=== PATIENT | female | born 1980 | race African-American/Black ===

== ENCOUNTER 2017-10-05 09:11 | Emergency (ER) | payer BC ==
[2017-10-05] MEDS: Take Home: Acetaminophen/HYDROcodone 325-10 MG, 5 Tab Pack PO ONE (09:59)
[2017-10-05] MEDS: predniSONE 20 MG Tab PO ONE (09:59)
[2017-10-05] MEDS: Take Home: Cyclobenzaprine 10 MG Tab, 4 Tab Pack PO ONE (09:59)
--- NOTE | 2017-10-05 13:01 | EDM.PDOC ---
ED HPI GENERAL MEDICAL PROBLEM - General Chief Complaint: Back Pain or Injury Stated Complaint: BACK PAIN Time Seen by Provider: 10/05/17 09:11 Source of Information: Reports: Patient History Limitations: Reports: No Limitations - History of Present Illness INITIAL COMMENTS - FREE TEXT/NARRATIVE: Pt. presents to ER with complaints of low back pain and paresthesia in the back of her R thigh. Pt. states that she was lifting a heavy television set and twisted at the waist, injuring her back. She states that after she laid flat on her back, she began experiencing the paresthesia. She denies any saddle anesthesia. No incontinence. Denies any injury other than what was isolated to her back. Lower Back Pain Score (Numeric/FACES): 9 - Related Data Allergies Allergy/AdvReac Type Severity Reaction Status Date / Time loratadine Allergy Swelling Verified 08/26/15 16:20 Penicillins Allergy Swelling Verified 08/26/15 16:20 Home Meds: Home Meds . [No Known Home Meds] 08/26/15 [History] Past Medical History - Past Health History Medical/Surgical History: Denies Medical/Surgical History - Past Surgical History Female Surgical History: Reports: Section Social & Family History - Tobacco Use Smoking Status *Q: Never Smoker - Alcohol Use Days Per Week of Alcohol Use: 3 Number of Drinks Per Day: 2 Total Drinks Per Week: 6 - Recreational Drug Use Recreational Drug Use: No ED ROS GENERAL - Review of Systems Review Of Systems: See Below Constitutional: Reports: No Symptoms HEENT: Reports: No Symptoms Respiratory: Reports: No Symptoms Cardiovascular: Reports: No Symptoms Endocrine: Reports: No Symptoms GI/Abdominal: Reports: No Symptoms : Reports: No Symptoms Musculoskeletal: Reports: Back Pain Skin: Reports: No Symptoms Neurological: Reports: No Symptoms, Paresthesia, Other (posterior R thigh) Psychiatric: Reports: No Symptoms Hematologic/Lymphatic: Reports: No Symptoms Immunologic: Reports: No Symptoms ED EXAM, GENERAL - Physical Exam Exam: See Below Exam Limited By: No Limitations General Appearance: Alert, WD/WN, No Apparent Distress Ears: Normal External Exam, Normal Canal, Hearing Grossly Normal, Normal TMs Ear Exam: Bilateral Ear: Auricle Normal, Canal Normal, TM normal Nose: Normal Inspection, Normal Mucosa, No Blood Respiratory/Chest: No Respiratory Distress, Lungs Clear, Normal Breath Sounds, No Accessory Muscle Use, Chest Non-Tender Cardiovascular: Normal Peripheral Pulses, Regular Rate, Rhythm, No Edema, No Gallop, No JVD, No Murmur, No Rub Back Exam: Normal Inspection, Decreased Range of Motion, Muscle Spasm, Paraspinal Tenderness, Vertebral Tenderness Extremities: Normal Inspection, Normal Range of Motion, Non-Tender, Normal Capillary Refill, No Pedal Edema Neurological: Alert, Oriented, CN II-XII Intact, Normal Cognition, Normal Gait, Normal Reflexes, No Motor/Sensory Deficits Psychiatric: Normal Affect, Normal Mood Skin Exam: Warm, Dry, Intact, Normal Color, No Rash Course - Vital Signs Last Recorded V/S: Last Vital Signs Temp 36.6 C 10/05/17 09:11 Pulse 61 10/05/17 09:11 Resp 16 10/05/17 09:11 BP 117/76 10/05/17 09:11 Pulse Ox - Orders/Labs/Meds Meds: Medications Discontinued Medications Generic Name Dose Route Start Last Admin Trade Name Shakir PRN Reason Stop Dose Admin Hydrocodone Bitart/Acetaminophen 1 packet 10/05/17 09:43 10/05/17 09:59 Take Home: Acetaminophen/Hydrocodone 325-10mg PO 10/05/17 09:44 1 packet ONETIME ONE Administration Cyclobenzaprine HCl 1 packet 10/05/17 09:44 10/05/17 09:59 Take Home: Cyclobenzaprine 10 Mg, 4 Tab Pack PO 10/05/17 09:45 1 packet ONETIME ONE Administration Prednisone 40 mg 10/05/17 09:44 10/05/17 09:59 Prednisone PO 10/05/17 09:45 40 mg ONETIME ONE Administration Departure - Departure Time of Disposition: 10:10 Disposition: Home, Self-Care 01 Clinical Impression: Low back pain radiating to right lower extremity - Discharge Information Instructions: Back Pain, Adult, [id number], Low Back Strain Rehab-SportsMed Referrals: PCP,None [Primary Care Provider] - Forms: ED Department Discharge Additional Instructions: Cyclobenzaprine 10mg three times daily as needed for muscle spasm Fortescue 10/325mg 1 every 4-6 hours as needed for pain Prednisone 40mg once daily until gone Continue with ibuprofen 800mg every 8 hours as needed for pain Do exercises as described. Follow-up in clinic in 10 days for recheck. You will be contacted regarding physical therapy.
== END 2017-10-05 10:10 | disposition home or self-care (01) ==
LOC: VM.ED 09:11
DX: M54.5 Low back pain (principal); Z88.8 Allergy status to other drugs, medicaments and biological substances; Z88.0 Allergy status to penicillin
CPT/HCPCS: 99283; A9270-GY

== ENCOUNTER 2019-03-15 10:35 | Emergency (ER) | payer SELFPAY ==
--- NOTE | 2019-03-15 11:19 | EDM.PDOC ---
ED HPI GENERAL MEDICAL PROBLEM - General Stated Complaint: SORE THROAT, CHEST CONJESTION Time Seen by Provider: 03/15/19 11:00 Source of Information: Reports: Patient History Limitations: Reports: No Limitations - History of Present Illness INITIAL COMMENTS - FREE TEXT/NARRATIVE: She started getting sick on Friday. Her son was sick on Friday. She has had a productive cough. She has been having difficulty sleeping at night because of the cough. Sore throat but not sharp per se. Some chest discomfort but that is from the coughing. She did try to get into her primary she said today but was unable to. She does have allergies penicillin. I did see that she did have azithromycin in the past and she said that she had good results. I gave her a Z- Chintan as well as a refill. I also gave her Robitussin with codeine. I don't believe a chest x-ray is necessary. I don't believe lab work would be necessary either. She understood. Quality: Reports: Ache Severity: Moderate Improves with: Reports: None Throat Pain Score (Numeric/FACES): 7 Chest Pain Score (Numeric/FACES): 7 - Related Data Allergies Allergy/AdvReac Type Severity Reaction Status Date / Time loratadine Allergy Swelling Verified 03/15/19 12:46 Penicillins Allergy Swelling Verified 03/15/19 12:46 Home Meds: Home Meds Azithromycin 250 mg PO DAILY #6 tablet 03/15/19 [Rx] Codeine/guaiFENesin [guaiFENesin-Codeine Syrup] 5 - 10 ml PO Q6H #30 ml [Rx] Past Medical History - Past Health History Medical/Surgical History: Denies Medical/Surgical History - Past Surgical History Female Surgical History: Reports: Section ED ROS GENERAL - Review of Systems Review Of Systems: ROS reveals no pertinent complaints other than HPI. ED EXAM, GENERAL - Physical Exam Exam: See Below Exam Limited By: No Limitations General Appearance: Alert, Moderate Distress Nose: Normal Inspection, Normal Mucosa Throat/Mouth: Normal Inspection, Normal Lips, Normal Teeth, Normal Gums, Normal Oropharynx Head: Atraumatic, Normocephalic Neck: Normal Inspection, Supple, Non-Tender, Full Range of Motion Respiratory/Chest: No Respiratory Distress, Lungs Clear, Normal Breath Sounds, No Accessory Muscle Use, Chest Non-Tender Cardiovascular: Normal Peripheral Pulses, Regular Rate, Rhythm, No Edema, No Gallop, No JVD, No Murmur, No Rub Psychiatric: Normal Affect Skin Exam: Warm, Dry Lymphatic: No Adenopathy Course - Vital Signs Last Recorded V/S: Last Vital Signs Temp 36.6 C 03/15/19 10:40 Pulse 67 03/15/19 10:40 Resp 16 03/15/19 10:40 BP 123/66 03/15/19 10:40 Pulse Ox 99 03/15/19 10:40 Departure - Departure Time of Disposition: 11:13 Disposition: Home, Self-Care 01 Condition: Good Clinical Impression: Acute bronchitis Qualifiers: Bronchitis organism: unspecified organism Qualified Code(s): J20.9 - Acute bronchitis, unspecified - Discharge Information *PRESCRIPTION DRUG MONITORING PROGRAM REVIEWED*: Not Applicable *COPY OF PRESCRIPTION DRUG MONITORING REPORT IN PATIENT SHAHLA: Not Applicable Prescriptions: Azithromycin 250 mg PO DAILY #6 tablet Codeine/guaiFENesin [guaiFENesin-Codeine Syrup] 5 - 10 ml PO Q6H #30 ml Referrals: Sol Leal PA-C [Primary Care Provider] - Forms: ED Return to Work/School Form Additional Instructions: Refill the z-pack if not quite improved after the 5 days. I don't believe a x- ray would change the treatment.
== END 2019-03-15 11:30 | disposition home or self-care (01) ==
LOC: VM.ED 10:35
DX: J20.9 Acute bronchitis, unspecified (principal); Z88.8 Allergy status to other drugs, medicaments and biological substances; Z88.0 Allergy status to penicillin
CPT/HCPCS: 99283; 99283-GF

== ENCOUNTER 2020-10-22 09:51 | Emergency (ER) | payer OTHER, MEDICAID ==
[2020-10-22] MEDS ORDERED: Albuterol/Ipratropium 3.0-0.5 MG/3 ML Neb Soln NEB ONE (10:20)
[2020-10-22] MEDS ORDERED: Take Home: Doxycycline 100 MG Tab, 4 Tab Pack PO ONE (11:00)
[2020-10-22] MEDS ORDERED: Take Home: predniSONE 20 MG, 2 Tab Pack PO ONE (11:00)
[2020-10-22] MEDS ORDERED: Take Home: Albuterol 18 GM Inhaler, 1 Inhaler Pack INH PRN (11:00)
[2020-10-22] MEDS ORDERED: Sodium Chloride 0.9% 10 ML Syringe FLUSH PRN (11:14)
[2020-10-22] MEDS ORDERED: Dexamethasone 4 MG/ML SDV IVPUSH SCH (11:15)
[2020-10-22] MEDS ORDERED: Famotidine 20 MG/2 ML SDV IVPUSH PRN (11:17)
[2020-10-22] MEDS ORDERED: diphenhydrAMINE 50 MG/ML SDV IVPUSH PRN (11:17)
[2020-10-22] MEDS ORDERED: methylPREDNISolone Sodium Succinate 125 MG/2 ML SDV IVPUSH PRN (11:17)
[2020-10-22] MEDS ORDERED: EPINEPHrine 1 MG/ML SDV IM PRN (11:17)
--- NOTE | 2020-10-22 11:21 | CR ---
[id number] RAD/RAD Chest PA And Lateral EXAM: FRONTAL AND LATERAL CHEST INDICATION: HX OF BRONCHITIS COMPARISON: August 26, 2015. DISCUSSION: Evaluation mildly limited by low lung volumes. Mild to moderate bibasilar infiltrates, right greater than left. The heart is at upper limits of normal for size. No effusions. IMPRESSION: 1. Mild to moderate bibasilar infiltrates. Gavin Mojica MD 10/22/20 1120 Thank you for allowing us to participate in the care of your patient.
[2020-10-22] MEDS ORDERED: Sodium Chloride 0.9% 10 ML Syringe FLUSH SCH (11:30)
[2020-10-22 12:27] LABS: PTT,PARTIAL THROMBOPLSTIN TIME 31.9 SEC (25.6-32.8)
[2020-10-22 12:44] LABS: CHLORIDE,CL 100 mmol/L (98-107); SODIUM,NA 136 mmol/L (136-145)
[2020-10-22 12:45] LABS: ANION GAP 13.5 mmol/L (5-15)
--- NOTE | 2020-10-22 12:50 | EDM.PDOC ---
ED HPI GENERAL MEDICAL PROBLEM - General Chief Complaint: Respiratory Problem Stated Complaint: SOB,COUGHING Time Seen by Provider: 10/22/20 10:00 Source of Information: Reports: Patient History Limitations: Reports: No Limitations - History of Present Illness INITIAL COMMENTS - FREE TEXT/NARRATIVE: Pt. presents to ER with complaints of cough, chest congestion, respirophasic ch est pain and shortness of breath. Pt. denies any fever or chills. No nausea, vomiting, or diarrhea. Pt. states that she often has problems with bronchitis, particularly in the spring since moving to [place]. She has been seen in this facility in the past for bronchitis/reactive airway in the past. Pt. is a non-smoker and has never smoked. Pt. states that the symptoms started on Friday, and she states that she is feeling a bit better today than she did earlier in the week. She is concerned that she hasn't improved more, however. Pt. denies any exposure to patients positive for coronavirus. Pt. denies any jaw, arm, neck or back pain. Denies any formal diagnosis of asthma. No history of CAD, hypertension. Denies any peripheral edema. No history of dyslipidemia. She denies any hemoptysis. No calf pain or extremity pallor/duskiness. Onset: Today Onset Date: 10/22/20 Location: Reports: Chest, Generalized Improves with: Reports: Rest Worsens with: Reports: Breathing Thoracic Pain Score (Numeric/FACES): 8 - Related Data Allergies Allergy/AdvReac Type Severity Reaction Status Date / Time loratadine Allergy Swelling Verified 10/22/20 10:23 Penicillins Allergy Swelling Verified 10/22/20 10:23 Home Meds: Home Meds . [No Known Home Meds] 10/22/20 [History] Past Medical History - Past Health History Medical/Surgical History: Denies Medical/Surgical History - Infectious Disease History Infectious Disease History: Reports: Novel Coronavirus - Past Surgical History Female Surgical History: Reports: Section Social & Family History - Tobacco Use Tobacco Use Status *Q: Never Tobacco User ED ROS GENERAL - Review of Systems Review Of Systems: See Below Constitutional: Reports: No Symptoms HEENT: Reports: No Symptoms Respiratory: Reports: Shortness of Breath, Wheezing, Cough Cardiovascular: Reports: Chest Pain Endocrine: Reports: No Symptoms GI/Abdominal: Reports: No Symptoms : Reports: No Symptoms Musculoskeletal: Reports: No Symptoms Skin: Reports: No Symptoms Neurological: Reports: No Symptoms Psychiatric: Reports: No Symptoms Hematologic/Lymphatic: Reports: No Symptoms Immunologic: Reports: No Symptoms ED EXAM, GENERAL - Physical Exam Exam: See Below Exam Limited By: No Limitations General Appearance: Alert, WD/WN, Mild Distress Eye Exam: Bilateral Eye: EOMI, PERRL Head: Atraumatic, Normocephalic Neck: Normal Inspection, Supple, Non-Tender, Full Range of Motion Respiratory/Chest: No Respiratory Distress, No Accessory Muscle Use, Chest Non- Tender, Wheezing Cardiovascular: Normal Peripheral Pulses, Regular Rate, Rhythm, No Edema, No JVD, No Murmur GI/Abdominal: Soft, Non-Tender, No Distention, No Mass (Female) Exam: Deferred Rectal (Female) Exam: Deferred Back Exam: Normal Inspection, Full Range of Motion Extremities: Normal Inspection, Normal Range of Motion, Non-Tender, No Pedal Edema, Normal Capillary Refill Neurological: Alert, Oriented, CN II-XII Intact, Normal Cognition, Normal Reflexes, No Motor/Sensory Deficits Psychiatric: Normal Affect, Normal Mood Skin Exam: Warm, Dry, Intact, Normal Color, No Rash Lymphatic: No Adenopathy #1 Interpretation Rhythm: NSR [place]: Normal P-Wave: Present QRS: Normal ST-T: Normal QT: Normal Course - Vital Signs Last Recorded V/S: Last Vital Signs Temp 36.7 C 10/22/20 13:17 Pulse 81 10/22/20 13:17 Resp 18 10/22/20 13:17 BP 140/89 10/22/20 13:17 Pulse Ox 98 10/22/20 13:17 - Orders/Labs/Meds Orders: Active Orders 24 hr Category Date Time Status EKG Documentation Completion [RC] STAT Care 10/22/20 11:11 Active Nurse Communication: Isolation [RC] ASDIRECTED Care 10/22/20 11:10 Active RT Aerosol Therapy [RC] ASDIRECTED Care 10/22/20 10:20 Active Vital Signs [RC] Q15M Care 10/22/20 11:17 Active CULTURE BLOOD [BC] Stat Lab 10/22/20 11:40 Received CULTURE BLOOD [BC] Stat Lab 10/22/20 11:49 Received PROCALCITONIN [REF] Stat Lab 10/22/20 11:40 Received Albuterol [Take Home: Albuterol 18 GM, 1 INH Pack] Med 10/22/20 11:00 Active 1 packet INH Q4H PRN EPINEPHrine [Adrenalin] Med 10/22/20 11:17 Active 0.3 mg IM ONETIME PRN Famotidine [Pepcid] Med 10/22/20 11:17 Active 20 mg IVPUSH ONETIME PRN Sodium Chloride 0.9% [Saline Flush] Med 10/22/20 11:14 Active 10 ml FLUSH ASDIRECTED PRN Sodium Chloride 0.9% [Saline Flush] Med 10/22/20 11:30 Active 30 ml FLUSH ASDIRECTED dexAMETHasone [Decadron] Med 10/22/20 11:15 Active 6 mg IVPUSH DAILY diphenhydrAMINE [Benadryl] Med 10/22/20 11:17 Active 50 mg IVPUSH ONETIME PRN methylPREDNISolone Sod Succ [Solu-MEDROL] Med 10/22/20 11:17 Active 125 mg IVPUSH ONETIME PRN Blood Culture x2 Reflex Set [OM.PC] Stat Oth 10/22/20 11:27 Ordered Isolation [COMM] Stat Oth 10/22/20 11:10 Ordered Peripheral IV Insertion Adult [OM.PC] Routine Oth 10/22/20 11:14 Ordered Medication Orders Albuterol (Take Home: Albuterol 18 Gm Inhaler, 1 Inhaler Pack) 1 packet INH Q4H PRN PRN Reason: Shortness of Breath Dexamethasone (Dexamethasone 4 Mg/Ml Sdv) 6 mg IVPUSH DAILY EKTA Stop: 10/31/20 08:01 Last Admin: 10/22/20 11:37 Dose: 6 mg Documented by: ROJAS Diphenhydramine HCl (Diphenhydramine 50 Mg/Ml Sdv) 50 mg IVPUSH ONETIME PRN PRN Reason: hypersensitivity reaction Epinephrine HCl (Epinephrine 1 Mg/Ml Sdv) 0.3 mg IM ONETIME PRN PRN Reason: hypersensitivity reaction Famotidine (Famotidine 20 Mg/2 Ml Sdv) 20 mg IVPUSH ONETIME PRN PRN Reason: hypersensitivity reaction Methylprednisolone Sodium Succinate (Methylprednisolone Sodium Succinate 125 Mg/2 Ml Sdv) 125 mg IVPUSH ONETIME PRN PRN Reason: hypersensitivity reaction Sodium Chloride (Sodium Chloride 0.9% 10 Ml Syringe) 10 ml FLUSH ASDIRECTED PRN PRN Reason: Keep Vein Open Sodium Chloride (Sodium Chloride 0.9% 10 Ml Syringe) 30 ml FLUSH ASDIRECTED EKTA Labs: Laboratory Tests 10/22/20 10/22/20 10/22/20 Range/Units 10:19 11:35 11:35 WBC (4.0-10.0) x10^3/uL RBC (4.00-5.50) x10^6/uL Hgb (12.0-16.0) g/dL Hct (33.0-47.0) % MCV (78.0-93.0) fL MCH (26.0-32.0) pg MCHC (32.0-36.0) g/dL RDW Coeff of Charlee (10.0-15.0) % Plt Count (130-400) x10^3/uL Neut % (Auto) (50.0-80.0) % Lymph % (Auto) (25.0-50.0) % [place] % (Auto) (2.0-11.0) % Eos % (Auto) (0.0-4.0) % Baso % (Auto) (0.2-1.2) % PT (9.9-12.5) SEC INR (2.0-3.5) APTT (25.6-32.8) SEC D-Dimer, Quantitative (<=0.58) mg/LFEU Sodium 136 (136-145) mmol/L Potassium 3.5 (3.5-5.1) mmol/L Chloride 100 (98-107) mmol/L Carbon Dioxide 26 (21-32) mmol/L Anion Gap 13.5 (5-15) mmol/L BUN 10 (7-18) mg/dL Creatinine 1.0 (0.55-1.02) mg/dL Est Cr Clr Drug Dosing TNP Estimated GFR (MDRD) > 60 Glucose 99 (70-99) mg/dL Lactic Acid 0.9 (0.4-2.0) mmol/L Calcium 8.6 (8.5-10.1) mg/dL Ferritin (8-252) ng/mL Total Bilirubin 0.3 (0.2-1.0) mg/dL Direct Bilirubin 0.09 (0.00-0.20) mg/dL Indirect Bilirubin 0.21 AST 61 H (15-37) U/L ALT 51 (14-59) U/L Alkaline Phosphatase 88 (46-116) U/L Lactate Dehydrogenase 294 H (81-234) U/L Creatine Kinase 351 H* (26-192) U/L Total Protein 8.1 (6.4-8.2) g/dL Albumin 3.4 (3.4-5.0) g/dL Globulin 4.7 Albumin/Globulin Ratio 0.72 SARS-CoV-2 RNA (JULIETH) Positive H (NEGATIVE) 10/22/20 10/22/20 10/22/20 Range/Units 11:35 11:35 11:35 WBC 2.7 L (4.0-10.0) x10^3/uL RBC 4.33 (4.00-5.50) x10^6/uL Hgb 13.0 (12.0-16.0) g/dL Hct 38.5 (33.0-47.0) % MCV 88.9 (78.0-93.0) fL MCH 30.0 (26.0-32.0) pg MCHC 33.8 (32.0-36.0) g/dL RDW Coeff of Charlee 14.1 (10.0-15.0) % Plt Count 141 (130-400) x10^3/uL Neut % (Auto) 62.0 (50.0-80.0) % Lymph % (Auto) 28.6 (25.0-50.0) % [place] % (Auto) 9.4 (2.0-11.0) % Eos % (Auto) 0.0 (0.0-4.0) % Baso % (Auto) 0.0 L (0.2-1.2) % PT 10.2 (9.9-12.5) SEC INR 0.9 L (2.0-3.5) APTT 31.9 (25.6-32.8) SEC D-Dimer, Quantitative (<=0.58) mg/LFEU Sodium (136-145) mmol/L Potassium (3.5-5.1) mmol/L Chloride (98-107) mmol/L Carbon Dioxide (21-32) mmol/L Anion Gap (5-15) mmol/L BUN (7-18) mg/dL Creatinine (0.55-1.02) mg/dL Est Cr Clr Drug Dosing Estimated GFR (MDRD) Glucose (70-99) mg/dL Lactic Acid (0.4-2.0) mmol/L Calcium (8.5-10.1) mg/dL Ferritin 116 (8-252) ng/mL Total Bilirubin (0.2-1.0) mg/dL Direct Bilirubin (0.00-0.20) mg/dL Indirect Bilirubin AST (15-37) U/L ALT (14-59) U/L Alkaline Phosphatase (46-116) U/L Lactate Dehydrogenase (81-234) U/L Creatine Kinase (26-192) U/L Total Protein (6.4-8.2) g/dL Albumin (3.4-5.0) g/dL Globulin Albumin/Globulin Ratio SARS-CoV-2 RNA (JULIETH) (NEGATIVE) 10/22/20 Range/Units 11:40 WBC (4.0-10.0) x10^3/uL RBC (4.00-5.50) x10^6/uL Hgb (12.0-16.0) g/dL Hct (33.0-47.0) % MCV (78.0-93.0) fL MCH (26.0-32.0) pg MCHC (32.0-36.0) g/dL RDW Coeff of Charlee (10.0-15.0) % Plt Count (130-400) x10^3/uL Neut % (Auto) (50.0-80.0) % Lymph % (Auto) (25.0-50.0) % [place] % (Auto) (2.0-11.0) % Eos % (Auto) (0.0-4.0) % Baso % (Auto) (0.2-1.2) % PT (9.9-12.5) SEC INR (2.0-3.5) APTT (25.6-32.8) SEC D-Dimer, Quantitative 0.76 H (<=0.58) mg/LFEU Sodium (136-145) mmol/L Potassium (3.5-5.1) mmol/L Chloride (98-107) mmol/L Carbon Dioxide (21-32) mmol/L Anion Gap (5-15) mmol/L BUN (7-18) mg/dL Creatinine (0.55-1.02) mg/dL Est Cr Clr Drug Dosing Estimated GFR (MDRD) Glucose (70-99) mg/dL Lactic Acid (0.4-2.0) mmol/L Calcium (8.5-10.1) mg/dL Ferritin (8-252) ng/mL Total Bilirubin (0.2-1.0) mg/dL Direct Bilirubin (0.00-0.20) mg/dL Indirect Bilirubin AST (15-37) U/L ALT (14-59) U/L Alkaline Phosphatase (46-116) U/L Lactate Dehydrogenase (81-234) U/L Creatine Kinase (26-192) U/L Total Protein (6.4-8.2) g/dL Albumin (3.4-5.0) g/dL Globulin Albumin/Globulin Ratio SARS-CoV-2 RNA (JULIETH) (NEGATIVE) Meds: Medications Generic Name Dose Route Start Last Admin Trade Name Freq PRN Reason Stop Dose Admin Albuterol 1 packet 10/22/20 11:00 Take Home: Albuterol 18 Gm Inhaler, 1 Inhaler Pack INH Q4H PRN Shortness of Breath Dexamethasone 6 mg 10/22/20 11:15 10/22/20 11:37 Dexamethasone 4 Mg/Ml Sdv IVPUSH 10/31/20 08:01 6 mg DAILY EKTA Administration Diphenhydramine HCl 50 mg 10/22/20 11:17 Diphenhydramine 50 Mg/Ml Sdv IVPUSH ONETIME PRN hypersensitivity reaction Epinephrine HCl 0.3 mg 10/22/20 11:17 Epinephrine 1 Mg/Ml Sdv IM ONETIME PRN hypersensitivity reaction Famotidine 20 mg 10/22/20 11:17 Famotidine 20 Mg/2 Ml Sdv IVPUSH ONETIME PRN hypersensitivity reaction Methylprednisolone Sodium Succinate 125 mg 10/22/20 11:17 Methylprednisolone Sodium Succinate 125 Mg/2 Ml Sdv IVPUSH ONETIME PRN hypersensitivity reaction Sodium Chloride 10 ml 10/22/20 11:14 Sodium Chloride 0.9% 10 Ml Syringe FLUSH ASDIRECTED PRN Keep Vein Open Sodium Chloride 30 ml 10/22/20 11:30 Sodium Chloride 0.9% 10 Ml Syringe FLUSH ASDIRECTED EKTA Discontinued Medications Generic Name Dose Route Start Last Admin Trade Name Freq PRN Reason Stop Dose Admin Albuterol/Ipratropium 3 ml 10/22/20 10:20 10/22/20 10:27 Albuterol/Ipratropium 3.0-0.5 Mg/3 Ml Neb Soln NEB 10/22/20 10:21 3 ml ONETIME ONE Administration Doxycycline Monohydrate 1 packet 10/22/20 11:00 Take Home: Doxycycline 100 Mg Tab, 4 Tab Pack PO 10/22/20 11:01 ONETIME ONE Bamlanivimab 700 mg/ 310 mls @ 310 mls/hr 10/22/20 11:17 10/22/20 11:38 Etesevimab 1,400 mg/ Sodium IV 10/22/20 12:16 310 mls/hr Chloride ONETIME ONE Administration Iopamidol 100 ml 10/22/20 13:18 10/22/20 14:20 Iopamidol 612 Mg/Ml 100 Ml Bottle IVPUSH 10/22/20 13:19 100 ml ONETIME ONE Administration Prednisone 1 packet 10/22/20 11:00 Take Home: Prednisone 20 Mg, 2 Tab Pack PO 10/22/20 11:01 ONETIME ONE Promethazine HCl/Codeine 2 packet 10/22/20 14:47 Take Home: Codeine/Promethazine 10-6.25 Mg/5 Ml Syrup 5 Ml, 2 Cup Pack PO 10/22/20 14:48 ONETIME ONE - Radiology Interpretation Free Text/Narrative:: bibasilar infiltrates noted on the chest x-ray. CTA of the chest was obtained due to symptoms, elevated d dimer. No obvious PE was seen, but the quality of the study was poor. Radiologist states there was no obvious PE identified, but contrast opacification was insufficient for full embolus identification. Departure - Departure Time of Disposition: 15:05 Disposition: Home, Self-Care 01 Clinical Impression: COVID-19, Pneumonia - Discharge Information Instructions: COVID-19, COVID-19: Quarantine vs. Isolation - CDC Referrals: Sol Leal PA-C [Primary Care Provider] - Forms: ED Department Discharge Additional Instructions: Quarantine at home. [place] [facility] will be in contact with you regarding how long you need to do this. Doxycycline 100mg 1 twice daily for 10 days Prednisone 20mg 2 tabs daily until gone Phenergan with codeine cough medicine 1 tsp every 4-6 hours if needed for cough. Albuterol inhaler 2 puffs every 4-6 hours as needed for cough/breathing trouble. Return to ER if you have a harder time breathing. Contact the ER if you have any questions. My cell phone number is [phone] also if you have any questions. Sepsis Event Note (ED) - Evaluation Sepsis Screening Result: No Definite Risk - Focused Exam Vital Signs: Vital Signs Temp Pulse Resp BP Pulse Ox 10/22/20 13:17 36.7 C 81 18 140/89 98 10/22/20 13:02 36.7 C 84 14 137/74 97 10/22/20 12:47 80 14 139/79 95 10/22/20 12:32 80 16 127/77 98 10/22/20 12:17 36.9 C 83 18 131/82 98 10/22/20 12:02 98 16 134/77 98 10/22/20 11:45 36.6 C 83 18 125/68 98 10/22/20 10:00 36.8 C 85 16 113/59 L 97 - Problem List Review Problem List Initiated/Reviewed/Updated: Yes - My Orders Last 24 Hours: My Active Orders 10/22/20 10:20 RT Aerosol Therapy [RC] ASDIRECTED 10/22/20 11:00 Albuterol [Take Home: Albuterol 18 GM, 1 INH Pack] 1 packet INH Q4H PRN 10/22/20 11:10 Nurse Communication: Isolation [RC] ASDIRECTED Isolation [COMM] Stat 10/22/20 11:11 EKG Documentation Completion [RC] STAT 10/22/20 11:14 Sodium Chloride 0.9% [Saline Flush] 10 ml FLUSH ASDIRECTED PRN Peripheral IV Insertion Adult [OM.PC] Routine 10/22/20 11:15 dexAMETHasone [Decadron] 6 mg IVPUSH DAILY 10/22/20 11:17 Vital Signs [RC] Q15M EPINEPHrine [Adrenalin] 0.3 mg IM ONETIME PRN Famotidine [Pepcid] 20 mg IVPUSH ONETIME PRN diphenhydrAMINE [Benadryl] 50 mg IVPUSH ONETIME PRN methylPREDNISolone Sod Succ [Solu-MEDROL] 125 mg IVPUSH ONETIME PRN 10/22/20 11:27 Blood Culture x2 Reflex Set [OM.PC] Stat 10/22/20 11:30 Sodium Chloride 0.9% [Saline Flush] 30 ml FLUSH ASDIRECTED 10/22/20 11:40 CULTURE BLOOD [BC] Stat PROCALCITONIN [REF] Stat 10/22/20 11:49 CULTURE BLOOD [BC] Stat - Assessment/Plan Last 24 Hours: My Active Orders 10/22/20 10:20 RT Aerosol Therapy [RC] ASDIRECTED 10/22/20 11:00 Albuterol [Take Home: Albuterol 18 GM, 1 INH Pack] 1 packet INH Q4H PRN 10/22/20 11:10 Nurse Communication: Isolation [RC] ASDIRECTED Isolation [COMM] Stat 10/22/20 11:11 EKG Documentation Completion [RC] STAT 10/22/20 11:14 Sodium Chloride 0.9% [Saline Flush] 10 ml FLUSH ASDIRECTED PRN Peripheral IV Insertion Adult [OM.PC] Routine 10/22/20 11:15 dexAMETHasone [Decadron] 6 mg IVPUSH DAILY 10/22/20 11:17 Vital Signs [RC] Q15M EPINEPHrine [Adrenalin] 0.3 mg IM ONETIME PRN Famotidine [Pepcid] 20 mg IVPUSH ONETIME PRN diphenhydrAMINE [Benadryl] 50 mg IVPUSH ONETIME PRN methylPREDNISolone Sod Succ [Solu-MEDROL] 125 mg IVPUSH ONETIME PRN 10/22/20 11:27 Blood Culture x2 Reflex Set [OM.PC] Stat 10/22/20 11:30 Sodium Chloride 0.9% [Saline Flush] 30 ml FLUSH ASDIRECTED 10/22/20 11:40 CULTURE BLOOD [BC] Stat PROCALCITONIN [REF] Stat 10/22/20 11:49 CULTURE BLOOD [BC] Stat Plan: Pt. states that she is feeling better after the nebulizer treatment. She tolerated the monoclonal antibiotic regimen well. Pt. was hemodynamically stable and not obviously dyspneic on discharge, and appeared to be having improved breathing. Unfortunately there were complications during the contrast injection phase of her CTA. No obvious PE was noted, but smaller PE could not be excluded. Discussed findings with patient. She is comfortable with being discharged and returning if the symptoms worsen, if she has increased shortness of breath, hemoptysis, if she feels faint, or if she has concerns. I think the risks of redoing the CTA at this point outweigh the benefits. She would be a great risk for contrast nephropathy. Clinically she has no evidence of PE other than mildly elevated d dimer and shortness of breath that has improved during her treatment in ER. She lives with her who will be quarantined with the patient. Pt. will be started on doxycycline 100mg twice daily for 10 days. Her chest radiographs showed some more consolidation in the bases as well as the ground glass pattern seen with covid 19. I am concerned she may be developing a bacterial co-infection. She was also started on prednisone 40mg daily for a week. Pt. was also given an albuterol inhaler as well and phenergan with codeine for cough. Pt. was advised to return to the ER if she is having worsening symptoms. She was urged to contact the ER at any time if she has questions. She was also given my personal cell phone number to call for advice as well.
[2020-10-22] MEDS ORDERED: Iopamidol 612 MG/ML 100 ML Bottle IVPUSH ONE (13:18)
--- NOTE | 2020-10-22 14:34 | CT ---
[id number] CT/CTA Chest EXAM: CT ANGIOGRAM CHEST INDICATION: COVID+, ELEVATED D DIMER. COMPARISON: Chest radiograph same date. DISCUSSION: The degree of contrast opacification in the pulmonary arteries is insufficient for embolus detection. No embolus is identified. Multifocal consolidation and crazy paving opacities scattered throughout all lobes of both lungs with a mild basal predominant is nonspecific, but compatible the clinical history of COVID pneumonia. No pleural or pericardial effusion. Normal heart size. No mediastinal, hilar or axillary lymphadenopathy. The imaged upper abdomen and osseous structures are unremarkable. IMPRESSION: 1. No pulmonary embolism is identified, but contrast opacification is insufficient for embolus detection. 2. Multifocal consolidation compatible with the clinical history of COVID pneumonia. Gavin Mojica MD 10/22/20 [id number] Thank you for allowing us to participate in the care of your patient.
[2020-10-22] MEDS ORDERED: Take Home: Codeine/Promethazine 10-6.25 MG/5 ML Syrup 5 ML, 2 Cup Pack PO ONE (14:47)
== END 2020-10-22 15:15 | disposition home or self-care (01) ==
LOC: VM.ED 09:51
DX: U07.1 COVID-19 (principal); J12.82 Pneumonia due to coronavirus disease 2019; Z88.5 Allergy status to narcotic agent; Z88.0 Allergy status to penicillin
CPT/HCPCS: 36415; 71046; 71275; 80048; 80076; 82550; 82728; 83605; 83615; 84145; 85025; 85379; 85610; 85730; 87040; 93005; 93010; 94640; 96374; 99283; 99285-25; A9270-GY; J1100; J7050; J7512; J7620-GY; M0245; Q0245; Q9967; U0002

== ENCOUNTER 2022-11-06 15:09 | Emergency (ER) | payer BC, MEDICAID, OTHER ==
[2022-11-06] MEDS ORDERED: Albuterol 0.083% 2.5 MG/3 ML Neb Soln NEB ONE (15:26)
[2022-11-06] MEDS ORDERED: Ipratropium 0.02% 0.5 MG/2.5 ML Neb Soln NEB ONE (15:27)
[2022-11-06 16:07] LABS: CORONAVIRUS COVID-19 NAA NEGATIVE (NEGATIVE); INFLUENZA A NAA NEGATIVE (NEGATIVE); INFLUENZA B NAA NEGATIVE (NEGATIVE); RESPIRATORY SYNCYTIAL VIR NAA NEGATIVE (NEGATIVE)
== END 2022-11-06 17:10 | disposition home or self-care (01) ==
LOC: VM.ED 15:09
DX: J40 Bronchitis, not specified as acute or chronic (principal); E66.9 Obesity, unspecified; Z68.42 Body mass index [BMI] 45.0-49.9, adult; Z86.16 Personal history of COVID-19; Z98.890 Other specified postprocedural states; Z88.0 Allergy status to penicillin; Z88.8 Allergy status to other drugs, medicaments and biological substances; Z79.899 Other long term (current) drug therapy; Z20.822 Contact with and (suspected) exposure to COVID-19
CPT/HCPCS: 0241U; 71046; 94640; 99283; 99284; J3490; J7613-GY